=== PATIENT | female | born 1965 | race Caucasian/White ===

== ENCOUNTER 2018-01-16 07:20 | Inpatient (IN) ==
--- NOTE | 2018-01-16 07:31 | History & Physical Report ---
Date of Encounter: 01/16/18 Time of Encounter: 07:31 24 Hour HP Update - Instructions Instructions: If the History and Physical is less than 30 days old and was completed prior to A.M. admission and or procedure and has NOT been updated on calendar day of procedure please complete this update prior to performing procedure. - Update Patient reports changes in Medical Condition: No Changes in examination, assessment, or condition: No Changes in Medication: No Preop tests/diagnostics Reviewed: Yes Surgery Remains Indicated: Yes Consent for Planned Operative Procedure(s) Verified: Yes - Pre-Operative Checklist Preoperative Checklist Indicated: No Prophylactic Antibiotic Ordered: Yes Is VTE Prophylaxis Indicated?: Yes
[2018-01-16] MEDS ORDERED: CeFAZolin Syr 2,000MG/20 ML 2,000 MG/20 ML SYRINGE IVPB ONE (07:33)
[2018-01-16] MEDS ORDERED: Albuterol 2.5 MG/3 ML NEBULIZER IH ONE (07:33)
--- NOTE | 2018-01-16 07:41 | Anesthesia Evaluation PreOp ---
Date of Encounter: 01/16/18 Time of Encounter: 07:39 - Past History Planned Operation: Right Total Shoulder Cardiac History: HTN, Hyperlipidemia, Other (Hx) Pulmonary History: Denies Any Significant HX [employer] History: Seizures, CVA (approx 15 years ago), TIA ( 19 Years old), Other (Depression) Anesthesia History: No Prior Anesthetic Complications, Past Anesthesia (Appy, T&A, Left RCR, D&C, Breast Bx, Jt. TKR) : No Alcohol Use: none Drug use: none (denies but on subutex) Medications and Allergies Albuterol Sulfate [Albuterol Inhaler] 2 puff IH Q6H PRN 01/15/18 [History] Atorvastatin [Lipitor] 40 mg PO HS 01/15/18 [History] Buprenorphine HCl 01/15/18 [History] Clopidogrel [Plavix] 75 mg PO DAILY 01/15/18 [History] Gabapentin [Neurontin] 600 mg PO 01/15/18 [History] Ibuprofen 800 mg PO TID PRN 01/15/18 [History] Lisinopril [Zestril] 20 mg PO DAILY 01/15/18 [History] Polyethylene Glycol 3350 17 gm PO DAILY PRN 01/15/18 [History] Quetiapine Fumarate [Seroquel] 400 mg PO HS 01/15/18 [History] Sertraline [Zoloft] 200 mg PO DAILY 01/15/18 [History] diazePAM [Valium] 5 mg PO BID 01/15/18 [History] Allergy/AdvReac Type Severity Reaction Status Date / Time No Known Allergies Allergy Verified 12/02/14 18:18 - Meds/Allergy Pre-op Review Medications Reviewed: Yes Allergies Reviewed: Yes Beta Blockers on Current Med List: No Anesthesia Results - Labs Laboratory Tests 01/14/18 01/14/18 01/14/18 16:20 16:20 16:20 WBC 6.4 Hgb 12.9 Hct 38.0 Plt Count 170 INR 0.9 Sodium 137 Potassium 4.1 Chloride 100 Carbon Dioxide 33 H Creatinine 0.93 Anesthesia Exam O2 Sat Height 1.68 m Height 1.68 m Weight 86.183 kg Weight 86.183 kg O2 Sat by Pulse Oximetry 95 O2 Sat by Pulse Oximetry 95 Vital Signs Temp Pulse Resp BP Pulse Ox 98.2 F 86 18 119/77 95 01/16/18 07:34 01/16/18 07:34 01/16/18 07:34 01/16/18 07:34 01/16/18 07:34 NPO (# of Hours): > 8 Hrs Pain Scale: 0 Pain Scale Used: Numeric (1 - 10) - HEENT Pupil (Motor): Pupils equal, EOMI Mallampati: I Teeth: Normal Oral Opening: Greater than 3 - H[employer] LOC: Oriented [employer] Motor: Normal RUE, Normal LUE, Normal RLE, Normal LLE, Normal Face [employer] Sensory: Normal: RUE, LUE, RLE, LLE, Face - Cardiac Rhythm: Regular Murmur: None JVD: No Carotid Bruit: No - Pulmonary Breath Sounds: bilateral Clear Respiratory Effort: Symmetrical Anesthesia Assess/Plan ASA Score: 3 Level of consciousness: Cooperative Anesthetic Plan: General, Regional Nerve Block Regional Nerve Block Plan: Supraclavicular Autologous Blood: Yes Monitoring Plan: Standard Monitors Recovery Plan: PACU
[2018-01-16] MEDS ORDERED: Bupivacaine/Clonidine Syringe 1 EACH SYRINGE ONE (07:43)
[2018-01-16] MEDS ORDERED: ROPIVACAINE HCL/PF 0.5% 30 ML VIAL ONE (07:43)
[2018-01-16] MEDS ORDERED: Lidocaine -MPF 2% 5 ML VIAL ONE (07:44)
[2018-01-16] MEDS ORDERED: Ringers Solution, Lactated 1,000 ML IVC SCH ×2 (07:45→10:25)
[2018-01-16] MEDS ORDERED: *HR* Succinylcholine 200 MG/10 ML VIAL IVP ONE (07:47)
[2018-01-16] MEDS ORDERED: Ondansetron 4 MG/2 ML VIAL ONE (07:47)
[2018-01-16] MEDS ORDERED: Lidocaine -MPF 2% 2 ML VIAL ONE (07:47)
[2018-01-16] MEDS ORDERED: Ethanol\\Acetic Acid\\Na Ace\\Ben 1,000 ML IRRIG.SOLN IR ONE (07:47)
[2018-01-16] MEDS ORDERED: *HR* FentaNYL (PF) 100 MCG/2 ML VIAL ONE (07:47)
[2018-01-16] MEDS ORDERED: *HR* Propofol 200 MG/20 ML VIAL IVP ONE (07:47)
[2018-01-16] MEDS ORDERED: *HR* Midazolam HCl 2 MG/2 ML VIAL ONE (07:47)
[2018-01-16] MEDS ORDERED: Dexamethasone 4 MG/ML VIAL ONE (07:49)
[2018-01-16] MEDS ORDERED: *HR* OxyCODONE Immed Rel 5 MG TABLET PO PRN ×2 (08:09→10:25)
[2018-01-16] MEDS ORDERED: *HR* HYDROmorphone (PF) 1 MG/ML SYRINGE IVP PRN (08:09)
[2018-01-16] MEDS ORDERED: Ondansetron 4 MG/2 ML VIAL IVP ONE (08:09)
--- NOTE | 2018-01-16 08:09 | Anesthesia Procedures ---
Date of Encounter: 01/16/18 Time of Encounter: 08:00 Procedures: Anesthesia - Nerve Block Procedure Date: 01/16/18 Time: 08:07 Allergies/Adv Reactions: Allergy/AdvReac Type Severity Reaction Status Date / Time No Known Allergies Allergy Verified 12/02/14 18:18 Surgical Procedure: right total shouler arthroplasty Checklist: Correct Patient Identifier Correct side: Right Blood Thinner: Yes (plavix, all vascular structures visulaized on the ultrasound and avoided ) Monitor Applied: EKG, BP, Pulse Oximetry Supplemental Oxygen via Nasal Cannula (L/min): 2 Sedation: Versed (mg): 2 Sedation: Fentanyl (mcg): 100 Indication: Post Op Analgesia Pre-op Neuro Deficits: No Block Type: Supraclavicular, Other (ICB, SCP) Catheter placed: No Sterile Technique: Yes Ultrasound used: Yes Anatomy identified: Yes Visual spread of Local: Yes Neuro Stimulation: No Blood on Needle Aspiration: No Smooth Injection of Local: Yes Pain with Injection of Local: Yes Prep: Chlorhexadine Needle: 22 x 50 mm Stimuplex Local: 0.25% Bupivicaine w/Clonidine 20 mcg/cc, Ropivacaine Volume (cc): 50 Number of Attempts: 1 Complications: None/effective block Vitals: see nurses notes
[2018-01-16] MEDS ORDERED: *HR* PHENYLEPHRINE 1,000 MCG/10 ML SYRINGE IVP ONE (08:35)
[2018-01-16] MEDS ORDERED: EPHEDrine 50 MG/ML VIAL ONE (08:38)
[2018-01-16] MEDS ORDERED: Lidocaine -MPF 4% 5 ML AMPUL ONE (09:09)
--- NOTE | 2018-01-16 09:14 | Orthopedic Operative Note ---
Date of procedure: 01/16/18 Pre-op diagnosis: Right shoulder cuff tear arthropathy Post-op diagnosis: same Procedure: Procedure: Total Shoulder Replacment Reverse, right Estimated blood loss: 50 cc apex Hardware: Metal and polyethylene replacement: Arthrex 24, +2 , 25 screw glenoid baseplate, 2 4.5 screws. 2 5.5 screw, 39+4 glenosphere, 8 apex humeral stem, poly insert 3 Exam Under anesthesia: Full motion no instability Procedural Notes: Grade 4 arthritic changes humeral head glenoid socket re-tear rotator cuff Operative procedure: The patient was brought to the operating room and placed on the operating room table. After general anesthesia was administered the operative shoulder was examined. Findings were noted. The patient was placed in the modified beachchair position. All pressure points were padded appropriately. And the head was stabilized in the neutral position. The operative extremity was prepped and draped in the sterile surgical fashion. The patient received IV antibiotics prior to skin incision. A standard deltopectoral approach was made to the operative shoulder. Incision was made to the skin and subcutaneous tissue,hemo stasis was obtained with Bovie cautery. Using careful blunt dissection the cephalic vein was identified and mo bilized medially. The deltopectoral interval was developed and the clavipectoral fascia was incised. The subscap was released off the lesser tuberosity and tagged with #2 FiberWire suture subscap irreparable. The humerus was dislocated patient noted to have re-tear supraspinatus tendon, and the humeral cut was made along the anatomic neck. Patient noted to have grade 4 arthritic changes humeral head glenoid socket. Anterior and posterior Bankart retractors were placed to expose the glenoid. The glenoid guide was seated and the centering hole was made. It was reamed with the appropriate reamer. The 24+2, 25 mm screw, baseplate was seated and secured with (2) 4.5 screws and 2 5.5 screw. The baseplate was irrigated and dried and the 39+4 Glenosphere was seated and secured with the Okeefe taper. The O[place]fe taper was tested and found to be secure the humerus was redislocated and prepared with the diaphyseal reamers, followed by a broaching process up to the appropriate size 8 apex in the patient's anatomic version. The metaphyseal reamer was then utilized. Trial reduction found the shoulder to be relocatable. Trial components were removed and 8 apex stem was impacted in place in the patient's anatomic version. Trial reduction found the shoulder to be relocatable and stable with the appropriate 3 Yamileth Trial component was removed and the real implant was seated and secured the shoulder was reduced. The shoulder had excellent motion and excellent stability and no evidence of dislocation. The deep tissue was irrigated with pulse irrigation. The PA close the shoulder. The deltopectoral interval was closed with a running #1 PDS suture, subcutaneous tissue was irrigated and closed with 0 PDS suture, the skin was closed with Dermabond. The patient was placed in a sterile dressing, abduction brace and extubated. The patient was then transferred to the recovery room in stable condition. Anesthesia: GETA Surgeon: Timur Alex Was there an social and human services assistant present: No Estimated blood loss (cc): 50 Condition: stable Disposition: PACU
--- NOTE | 2018-01-16 09:48 | Discharge Summary ---
Orders not resulted at time of discharge: Pending orders 01/16/18 07:32 XR shoulder complete RT [XR] Routine 01/16/18 07:36 US anesthesia pain block [US] Routine 01/16/18 09:20 Surgical Pathology [PTH] Routine 01/16/18 09:35 Hemoglobin and Hematocrit [HEME] Routine 01/16/18 09:41 XR shoulder complete RT [XR] Routine Date of Encounter: 01/19/18 Time of Encounter: 08:57 - Discharge Diagnosis (1) Status post reverse total arthroplasty of right shoulder Priority: Primary Status: Acute Comments: Opsite dressing, leave intact until first post-operative visit. Zipline in place, plan to remove at post-operative day #14-16. If dressing becomes >50% saturated, contact office, remove dressing and place appropriate dressing in its place. Do not allow for dressing to get wet. Shoulder Precautions x 6 weeks. Apply cold therapy wrap 3-6x/day for 20 minutes at a time. Encourage ambulation throughout the day. Use Incentive spirometer 10x/hour. Elevate affected extremity above heart as tolerated. NWB to affected upper extremity x 6 weeks. Will remove brace at first post-operative appointment. OK to remove during PT/OT and Home exercises. (2) Rotator cuff arthropathy of right shoulder Priority: Primary Status: Acute (3) Seizure disorder Priority: Primary Status: Acute (4) Tobacco use Priority: Secondary Status: Chronic (5) Hyperlipidemia Priority: Secondary Status: Chronic Qualifiers: Hyperlipidemia type: mixed hyperlipidemia Qualified Code(s): E78.2 - Mixed hyperlipidemia - Hospital Course Hospital course: Ms. Gaston is a 53 year old female, status post Total Shoulder replacement, reverse ball and socket 01/16/18 Patient had uneventful postoperative course. Stable for discharge. A&O x 3 Afebrile, vital signs stable. Vital Signs Temp Pulse Resp BP Pulse Ox 01/18/18 15:42 98.7 F 76 17 134/82 95 01/18/18 11:50 98.5 F 74 20 146/75 96 Intake and Output 01/18/18 01/19/18 01/19/18 23:59 07:59 15:59 Intake Total 50 / 50 Balance 50 / 50 Intake: Oral 50 / 50 Other: Meal Dinner Percent of Meal Consumed 30% Labs reviewed. H/H - stable, asymptomatic Laboratory Results - last 72 hr 01/16/18 01/17/18 01/17/18 09:49 05:37 05:37 Hgb 11.7 10.5 L Hct 35.9 31.5 L Sodium 137 Potassium 4.3 Chloride 104 Carbon Dioxide 27 BUN 19 Creatinine 0.85 Est GFR ( Amer) > 60 Est GFR (Non-Af Amer) > 60 BUN/Creatinine Ratio 22 Glucose 130 H Calculated Osmolality 288 Calcium 9.4 01/18/18 01/18/18 05:00 05:00 Hgb 9.9 L Hct 29.9 L Sodium 139 Potassium 4.0 Chloride 106 Carbon Dioxide 29 BUN 20 Creatinine 0.97 Est GFR ( Amer) > 60 Est GFR (Non-Af Amer) > 60 BUN/Creatinine Ratio 21 Glucose 135 H Calculated Osmolality 293 Calcium 9.2 Pain control: adequate Participating in PT. All questions and concerns addressed. Educated on use of incentive spirometer. Encouraged ambulation and proper hydration. Patient educated on post-operative restrictions and post-operative care. Assessment and plan: Continue with postoperative care Discharge plan: Home, discharge today.to [facility] - on Subutex. - Time Spent with Patient Total time spent providing and/or coordinating discharge services: - Discharge Medications Home Medications: Albuterol Sulfate [Albuterol Inhaler] 2 puff IH Q6H PRN 01/15/18 [History] Atorvastatin [Lipitor] 40 mg PO HS 01/15/18 [History] Buprenorphine HCl 8 mg SL DAILY 01/15/18 [History] Clopidogrel [Plavix] 75 mg PO DAILY 01/15/18 [History] Gabapentin [Neurontin] 600 mg PO DAILY 01/15/18 [History] Ibuprofen 800 mg PO TID PRN 01/15/18 [History] Lisinopril [Zestril] 10 mg PO DAILY 01/15/18 [History] Polyethylene Glycol 3350 17 gm PO DAILY PRN 01/15/18 [History] Sertraline [Zoloft] 200 mg PO DAILY 01/15/18 [History] Quetiapine Fumarate [Seroquel] 400 mg PO HS 01/16/18 [History] diazePAM [Valium] 5 mg PO BID PRN 4 Days #8 tablet 01/16/18 [Rx] Allergies/Adverse Reactions: Allergy/AdvReac Type Severity Reaction Status Date / Time No Known Allergies Allergy Verified 12/02/14 18:18 Date of admission: 01/16/18 Primary care physician: PCP NONE Anticipated date of discharge: 01/18/18 - Patient Status Disposition: Transfer SNF Condition: Good Functional capacity at discharge: uses cane/walker Overall status at discharge: patient is progressing back to baseline - Discharge Instructions Follow Up With: NONE,PCP [Primary Care Provider] - Additional Instructions: Discharge Instructions: Total Shoulder Please call [facility] ([phone]), your Primary Care Physician, or report to the Emergency Room if you have any of the following symptoms: Nausea, vomiting, fever greater that 101.5, swelling, chest pain, shortness of breath, increased pain/redness/drainage/odor for your incision site, numbness/tingling, or any other concerning symptoms. ACTIVITY: Always keep your arm in the sling. Do not raise your arm away from your body. Do not use your arm to help with getting in or out of bed. No weight bearing permitted. Only perform those exercises given to you by your therapist. Incentive Spirometer 10 times an hour. MEDICATIONS: Upon discharge resume your home medications. Take all the medications as prescribed. Take a stool softener if taking narcotic pain medications. Stool softeners are only effective if you drink enough fluids. Drink 6-8 glass of water or fluids a day, unless this is not allowed for another health problem. Despite using stool softeners, if you haven't had a bowel movement in 3 days, please switch to a gentle laxative. Gentle laxatives are sold over the counter. You should have a bowel movement within 24 hours, if not call the office. You will be discharged from the hospital with a prescription for pain medic ation. You are encouraged to decrease the use of narcotic pain medication as tolerated. Should you require a refill, please call the office. [facility] prescribes narcotic pain medication for only 4-6 weeks after surgery. If you require pain medication beyond this time period, you may be referred to your Primary Care Physician or to the Pain Clinic for further evaluation. Plan ahead for refills on pain medication as many narcotics either need to be picked up at the office or mailed. It is best to call 48-72 hours in advance of needing a prescription refill so you don't run out of medication. To help control the post-operative pain, you may take NSAIDs (Aleve,Advil, Motrin, Ibuprofen, Naprosyn) or Tylenol as prescribed on the bottle in addition to the pain medication. WOUND CARE: Leave the dressing on for 7-10 days. You may change the dressing if it becomes saturated greater than 50%. Do not get the dressing wet at anytime. Wash your hands with antibacterial soap, rinse and dry prior to any wound care. If you have siva the visiting nurse or rehab facility can remove the stapes 10-14 days after surgery and place steri-strips across the wound. Leave the steri-strips in place until they fall off on their own. You may let water from the shower run on top of the steri-strips. If you do not have a visiting nurse or rehab facility, you will need to return to the office at 10-14 days for the siva to be removed. If you have itching or redness around the dressing call the office. FOLLOW-UP: Please follow up with your surgeon in the orthopedic clinic, as scheduled
[2018-01-16 09:59] LABS: Hematocrit 35.9 % (35.3-44.9); Hemoglobin 11.7 g/dL (11.5-15.4)
[2018-01-16] MEDS ORDERED: Ondansetron 4 MG/2 ML VIAL IVP PRN (10:25)
[2018-01-16] MEDS ORDERED: traMADol 50 MG TABLET PO PRN (10:25)
[2018-01-16] MEDS ORDERED: MOM Conc 10 ML UD.LIQ PO PRN (10:25)
[2018-01-16] MEDS ORDERED: Naloxone 0.4 MG/ML INJ IVP PRN (10:25)
[2018-01-16] MEDS ORDERED: *HR* Buprenorphine HCl 8 MG TAB.SUBL SL SCH (10:25)
[2018-01-16] MEDS ORDERED: *HR* OxyCODONE/APAP 5/325 TABLET PO PRN (10:25)
[2018-01-16] MEDS ORDERED: Temazepam 15 MG CAPSULE PO PRN (10:25)
[2018-01-16] MEDS ORDERED: Sennosides 8.6 MG TABLET PO PRN (10:25)
--- NOTE | 2018-01-16 10:39 | Anesthesia Evaluation Post Op ---
Date of Encounter: 01/16/18 Time of Encounter: 10:39 - Vital Signs Vital Signs: Vital Signs/O2 Sat, Most Current Temp Pulse Resp BP Pulse Ox 98.2 F 80 14 110/63 98 01/16/18 10:13 01/16/18 10:13 01/16/18 10:13 01/16/18 10:13 01/16/18 10:13 - Lungs Lungs: Clear Ascult./Percussion - Airway Airway: Non-obstructed - Cardiovascular Regular Rate - Mental Status Mental Status: Alert & Oriented, Answers Appropriately - Pain Pain Scale: 0 Pain Scale used: Numeric (1 - 10) - Hydration Hydration: Ice chips, Has not voided - Discharge PostOp Status: Transfer Patient to floor
[2018-01-16] MEDS: Gabapentin 300 MG CAPSULE PO SCH (11:30)
[2018-01-16] MEDS: Ibuprofen 800 MG TABLET PO SCH ×3 (11:30→22:08)
[2018-01-16] MEDS: diazePAM 5 MG TABLET PO PRN ×2 (11:31→22:14)
--- NOTE | 2018-01-16 12:54 | Physician Discharge Referral ---
ExtendedCare Referral Info Transfer To: [facility] Provider in Charge: Provider in Charge after Transfer: PCP Institutional Level of Care: Skilled - Diagnosis (1) Status post reverse total arthroplasty of right shoulder Priority: Primary Status: Acute (2) Rotator cuff arthropathy of right shoulder Priority: Primary Status: Acute (3) Seizure disorder Status: Acute (4) Tobacco use Status: Acute (5) Hyperlipidemia Status: Acute - Transfer Medications Home Medications: Albuterol Sulfate [Albuterol Inhaler] 2 puff IH Q6H PRN 01/15/18 [History] Atorvastatin [Lipitor] 40 mg PO HS 01/15/18 [History] Buprenorphine HCl 8 mg SL DAILY 01/15/18 [History] Clopidogrel [Plavix] 75 mg PO DAILY 01/15/18 [History] Gabapentin [Neurontin] 600 mg PO DAILY 01/15/18 [History] Ibuprofen 800 mg PO TID PRN 01/15/18 [History] Lisinopril [Zestril] 10 mg PO DAILY 01/15/18 [History] Polyethylene Glycol 3350 17 gm PO DAILY PRN 01/15/18 [History] Quetiapine Fumarate [Seroquel] 300 mg PO HS 01/15/18 [History] Sertraline [Zoloft] 200 mg PO DAILY 01/15/18 [History] diazePAM [Valium] 5 mg PO BID PRN 4 Days #8 tablet 01/16/18 [Rx] Allergies/Adverse Reactions: Allergy/AdvReac Type Severity Reaction Status Date / Time No Known Allergies Allergy Verified 12/02/14 18:18 - Respiratory Orders None Smoking Cessation: Smoking cessation has been advised. For more information, call the [place] Tobacco Quit Line at 7-165-ZLVG-NOW. - Lab Orders Lab Orders: CBC, Other (include drug levels w/frequency) (Breathing treatment prn) - Mobility Orders Ambulate - Rehabiliation Orders Rehab Potential: Good Rehab Orders: ROM Exercises, Evaluation for Physical Therapy, Evaluation for Occupational Therapy - Treatments Skin tear care topically daily PRN per policy, May check for fecal impaction rectally daily PRN, Fleet enema rectally every other day PRN cleansing purposes List/Other: Opsite dressing, leave intact until first post-operative visit. Zipline in place, plan to remove at post-operative day #14-16. If dressing becomes >50% saturated, contact office, remove dressing and place appropriate dressing in its place. Do not allow for dressing to get wet. Shoulder Precautions x 6 weeks. Apply cold therapy wrap 3-6x/day for 20 minutes at a time. Encourage ambulation throughout the day. Use Incentive spirometer 10x/hour. Elevate affected extremity above heart as tolerated. NWB to affected upper extremity x 6 weeks. Will remove brace at first post-operative appointment. OK to remove during PT/OT and Home exercises. - Diet Orders Regular CERTIFICATION: I certify that the transfer of the above named patient to an Extended Care Facility is necessary for the continuing treatment of the diagnosis listed. The above information is true and accurate reflection of patient's current condition. Confidential - Redisclosure prohibited without a patient's written consent.
--- NOTE | 2018-01-16 12:55 | Physician Discharge Referral ---
Home Health/Hosp Referral Info Transfer to: Home Health Provider in Charge Post Discharge: PCP - Diagnosis (1) Status post reverse total arthroplasty of right shoulder Priority: Primary Status: Acute (2) Rotator cuff arthropathy of right shoulder Priority: Primary Status: Acute (3) Seizure disorder Status: Acute (4) Tobacco use Status: Acute (5) Hyperlipidemia Status: Acute - Respiratory Orders None Smoking Cessation: Smoking cessation has been advised. For more information, call the [place] Tobacco Quit Line at 9-237-MTHM-NOW. - Diet/Nutrition Diet/Nutrition Orders: Regular - Activity Activity Orders: Up ad kimberli, Ambulate, Chair - Services Needed Following services are medically necessary services: Nursing, Home Health Aide, Physical Therapy, Occupational Therapy Home Care Orders: Opsite dressing, leave intact until first post-operative visit. Zipline in place, plan to remove at post-operative day #14-16. If dressing becomes >50% saturated, contact office, remove dressing and place appropriate dressing in its place. Do not allow for dressing to get wet. Shoulder Precautions x 6 weeks. Apply cold therapy wrap 3-6x/day for 20 minutes at a time. Encourage ambulation throughout the day. Use Incentive spirometer 10x/hour. Elevate affected extremity above heart as tolerated. NWB to affected upper extremity x 6 weeks. Will remove brace at first post-operative appointment. OK to remove during PT/OT and Home exercises. - Transfer Medications Home Medications: Albuterol Sulfate [Albuterol Inhaler] 2 puff IH Q6H PRN 01/15/18 [History] Atorvastatin [Lipitor] 40 mg PO HS 01/15/18 [History] Buprenorphine HCl 8 mg SL DAILY 01/15/18 [History] Clopidogrel [Plavix] 75 mg PO DAILY 01/15/18 [History] Gabapentin [Neurontin] 600 mg PO DAILY 01/15/18 [History] Ibuprofen 800 mg PO TID PRN 01/15/18 [History] Lisinopril [Zestril] 10 mg PO DAILY 01/15/18 [History] Polyethylene Glycol 3350 17 gm PO DAILY PRN 01/15/18 [History] Quetiapine Fumarate [Seroquel] 300 mg PO HS 01/15/18 [History] Sertraline [Zoloft] 200 mg PO DAILY 01/15/18 [History] diazePAM [Valium] 5 mg PO BID PRN 4 Days #8 tablet 01/16/18 [Rx] Allergies/Adverse Reactions: Allergy/AdvReac Type Severity Reaction Status Date / Time No Known Allergies Allergy Verified 12/02/14 18:18 Certification: Further, I certify that my clinical findings support that this patient is homebound (i.e. absences from home require considerable and taxing effort and are for medical reasons or [employer] services or infrequently or short duration when for other reasons) because: Homebound Reason: Post-surgery restriction and or conditions limit ability to leave home Attestation: My signature below is to certify that this patient is under my care and that I, or nurse practitioner, or a physician's spa assistant manager working with me, has a [id number] encounter with this patient.
[2018-01-16] MEDS ORDERED: *HR* Enoxaparin 30 MG/0.3 ML SYRINGE SQ SCH (18:00)
[2018-01-16] MEDS: *HR* Enoxaparin 30 MG/0.3 ML SYRINGE SQ SCH (18:10)
[2018-01-17] MEDS: *HR* Enoxaparin 30 MG/0.3 ML SYRINGE SQ SCH ×2 (05:18→18:08)
[2018-01-17] MEDS: Ibuprofen 800 MG TABLET PO SCH ×3 (05:49→15:24)
[2018-01-17 06:10] LABS: Hematocrit 31.5 % (35.3-44.9); Hemoglobin 10.5 g/dL (11.5-15.4)
--- NOTE | 2018-01-17 06:19 | Orthopedics Progress Note ---
Date of Encounter: 01/17/18 Time of Encounter: 06:19 Subjective Interval history: Patient was seen this morning doing well without complaints. Afebrile vital signs stable. Operative extremity: Neurovascularly intact Dressing clean dry and intact Calves nontender Assessment and plan: Continue with postoperative care Objective Vital signs: Vital Signs Temp Pulse Resp BP Pulse Ox 01/17/18 04:08 98.3 F 81 17 131/81 95 01/17/18 00:00 98.8 F 80 17 122/60 98 01/16/18 19:14 98.6 F 84 16 123/64 99 01/16/18 13:30 85 17 104/66 97 01/16/18 13:00 87 16 136/85 93 01/16/18 12:30 92 17 97/54 94 01/16/18 12:00 86 17 92/64 94 01/16/18 11:40 17 86/49 94 01/16/18 11:39 84 17 86/49 01/16/18 11:28 16 93 01/16/18 11:16 84 17 99/63 92 01/16/18 11:10 84 17 99/63 01/16/18 10:40 97.6 F 84 15 102/55 90 01/16/18 10:13 98.2 F 80 14 110/63 98 01/16/18 10:03 98 F 78 14 91/75 100 01/16/18 09:53 86 16 95/80 97 01/16/18 09:43 85 12 101/74 99 01/16/18 09:33 98.5 F 81 10 89/68 84 01/16/18 08:09 80 18 114/79 93 01/16/18 07:59 98.2 F 85 18 102/65 92 01/16/18 07:34 98.2 F 86 18 119/77 95 Intake and Output 01/16/18 01/16/18 01/17/18 15:59 23:59 06:59 Intake Total 1240 / 1240 300 / 300 Output Total 50 / 50 700 / 700 1250 / 1250 Balance -50 / -50 540 / 540 -950 / -950 Intake: IV Fluids 100 / 100 Ancef 2,000 MG In 0.9 % Sodium 100 / 100 Chloride 100 ML @ 200 mls/hr IVPB Q8HR [facility] Rx#:[id number] Oral 1140 / 1140 300 / 300 Output: Urine 700 / 700 1250 / 1250 Estimated Blood Loss 50 / 50 Other: Meal Dinner Percent of Meal Consumed 100% # Voids 1 - Labs CBC & BMP: 01/17/18 05:37 Labs: Abnormal lab results Hgb 10.5 g/dL (11.5-15.4) L 01/17/18 05:37 Hct 31.5 % (35.3-44.9) L 01/17/18 05:37 Consult Discharge Plan - Plan Referrals: NONE,PCP [Primary Care Provider] -
[2018-01-17 06:34] LABS: BUN/Creatinine Ratio 22 (6-26); Blood Urea Nitrogen 19 mg/dL (6-20); Calcium 9.4 mg/dL (8.6-10.3); Carbon Dioxide 27 mEq/L (23-29); Chloride 104 mEq/L (98-107); Glucose 130 mg/dL (70-105); Osmolality,Calculated 288 (280-300); Potassium 4.3 mEq/L (3.5-5.1); Sodium 137 mEq/L (136-145); eGFR For Non-African Americans > 60 (> 60)
[2018-01-17] MEDS: Gabapentin 300 MG CAPSULE PO SCH (08:51)
[2018-01-17] MEDS: *HR* Buprenorphine HCl 8 MG TAB.SUBL SL SCH ×3 (08:51→20:00)
[2018-01-17] MEDS: Ketorolac 15 MG/ML VIAL IVP PRN (08:56)
[2018-01-17] MEDS: Acetaminophen IV 1,000 MG/100 ML INFUS..BTL IVPB PRN ×2 (13:22→22:09)
[2018-01-17] MEDS: diazePAM 5 MG TABLET PO PRN (20:02)
[2018-01-18] MEDS: Ibuprofen 800 MG TABLET PO SCH ×3 (00:40→17:41)
[2018-01-18 05:41] LABS: Hematocrit 29.9 % (35.3-44.9); Hemoglobin 9.9 g/dL (11.5-15.4)
[2018-01-18] MEDS: *HR* Enoxaparin 30 MG/0.3 ML SYRINGE SQ SCH (05:48)
[2018-01-18] MEDS: Ketorolac 15 MG/ML VIAL IVP PRN ×2 (05:48→12:49)
[2018-01-18 06:01] LABS: BUN/Creatinine Ratio 21 (6-26); Blood Urea Nitrogen 20 mg/dL (6-20); Calcium 9.2 mg/dL (8.6-10.3); Carbon Dioxide 29 mEq/L (23-29); Chloride 106 mEq/L (98-107); Glucose 135 mg/dL (70-105); Osmolality,Calculated 293 (280-300); Sodium 139 mEq/L (136-145); eGFR For Non-African Americans > 60 (> 60)
--- NOTE | 2018-01-18 07:39 | Orthopedics Progress Note ---
Date of Encounter: 01/18/18 Time of Encounter: 07:39 - Assessment and Plan (1) Acute blood loss anemia Current Visit: No Status: Acute Subjective Interval history: Patient was seen this morning doing well without complaints. Afebrile vital signs stable. Operative extremity: Neurovascularly intact Dressing clean dry and intact Calves nontender Assessment and plan: Continue with postoperative care Hemoglobin 9.9 Objective Vital signs: Vital Signs Temp Pulse Resp BP Pulse Ox 01/18/18 06:54 98.5 F 86 15 147/72 96 01/18/18 04:16 97.9 F 80 18 128/86 93 01/17/18 22:57 98.5 F 79 18 116/79 93 01/17/18 19:57 99.0 F 82 18 122/74 95 01/17/18 14:45 98.2 F 76 18 101/65 95 01/17/18 09:59 98.3 F 81 16 121/68 97 Intake and Output 01/17/18 01/17/18 01/18/18 15:59 23:59 07:59 Intake Total 350 / 350 100 / 100 0 / 0 Output Total 1500 / 1500 700 / 700 900 / 900 Balance -1150 / -1150 -600 / -600 -900 / -900 Intake: IV Fluids 100 / 100 100 / 100 Ofirmev 1,000 mg/100 ml 1,000 100 / 100 100 / 100 mg In 100 ml @ 400 mls/hr IVPB Q6HR PRN Rx#:[id number] Oral 250 / 250 0 / 0 0 / 0 Output: Urine 1500 / 1500 700 / 700 900 / 900 Other: Meal Lunch Percent of Meal Consumed 60% # Voids 1 1 Weight 97.9 kg Patient Weight 01/18/18 23:59 Weight 97.9 kg - Labs CBC & BMP: 01/18/18 05:00 01/18/18 05:00 Labs: Abnormal lab results Hgb 9.9 g/dL (11.5-15.4) L 01/18/18 05:00 Hct 29.9 % (35.3-44.9) L 01/18/18 05:00 Glucose 135 mg/dL (70-105) H 01/18/18 05:00 Consult Discharge Plan - Plan Referrals: NONE,PCP [Primary Care Provider] -
[2018-01-18] MEDS: *HR* Buprenorphine HCl 8 MG TAB.SUBL SL SCH ×2 (08:20→17:41)
[2018-01-18] MEDS: Gabapentin 300 MG CAPSULE PO SCH (08:20)
[2018-01-18] MEDS: diazePAM 5 MG TABLET PO PRN (08:25)
[2018-01-18] MEDS: Acetaminophen IV 1,000 MG/100 ML INFUS..BTL IVPB PRN (08:33)
[2018-01-18 15:44] VITALS: BP 134/82
--- NOTE | 2018-01-19 09:03 | Physician Discharge Referral ---
Home Health/Hosp Referral Info Transfer to: Home Health Provider in Charge Post Discharge: PCP - Diagnosis (1) Status post reverse total arthroplasty of right shoulder Priority: Primary Status: Acute (2) Rotator cuff arthropathy of right shoulder Priority: Primary Status: Acute (3) Seizure disorder Priority: Secondary Status: Acute (4) Tobacco use Priority: Secondary Status: Chronic (5) Hyperlipidemia Priority: Secondary Status: Chronic (6) Chronic pain Priority: Secondary Status: Chronic (7) Acute blood loss anemia Priority: Secondary Status: Chronic - Respiratory Orders None Smoking Cessation: Smoking cessation has been advised. For more information, call the [place] Tobacco Quit Line at 8-339-OEYK-NOW. - Diet/Nutrition Diet/Nutrition Orders: Regular - Activity Activity Orders: Up ad kimberli, Ambulate - Services Needed Following services are medically necessary services: Nursing, Home Health Aide, Physical Therapy, Occupational Therapy Home Care Orders: Opsite dressing, leave intact until first post-operative visit. Zipline in place, plan to remove at post-operative day #14-16. If dressing becomes >50% saturated, contact office, remove dressing and place appropriate dressing in its place. Do not allow for dressing to get wet. Shoulder Precautions x 6 weeks. Apply cold therapy wrap 3-6x/day for 20 minutes at a time. Encourage ambulation throughout the day. Use Incentive spirometer 10x/hour. Elevate affected extremity above heart as tolerated. NWB to affected upper extremity x 6 weeks. Will remove brace at first post-operative appointment. OK to remove during PT/OT and Home exercises. Remove ABD pillow at Postoperative day #1 - Transfer Medications Home Medications: Albuterol Sulfate [Albuterol Inhaler] 2 puff IH Q6H PRN 01/15/18 [History] Atorvastatin [Lipitor] 40 mg PO HS 01/15/18 [History] Buprenorphine HCl 8 mg SL DAILY 01/15/18 [History] Clopidogrel [Plavix] 75 mg PO DAILY 01/15/18 [History] Gabapentin [Neurontin] 600 mg PO DAILY 01/15/18 [History] Ibuprofen 800 mg PO TID PRN 01/15/18 [History] Lisinopril [Zestril] 10 mg PO DAILY 01/15/18 [History] Polyethylene Glycol 3350 17 gm PO DAILY PRN 01/15/18 [History] Sertraline [Zoloft] 200 mg PO DAILY 01/15/18 [History] Quetiapine Fumarate [Seroquel] 400 mg PO HS 01/16/18 [History] diazePAM [Valium] 5 mg PO BID PRN 4 Days #8 tablet 01/16/18 [Rx] Allergies/Adverse Reactions: Allergy/AdvReac Type Severity Reaction Status Date / Time No Known Allergies Allergy Verified 12/02/14 18:18 Certification: Further, I certify that my clinical findings support that this patient is homebound (i.e. absences from home require considerable and taxing effort and are for medical reasons or rastafarian services or infrequently or short duration when for other reasons) because: Homebound Reason: Post-surgery restriction and or conditions limit ability to leave home Attestation: My signature below is to certify that this patient is under my care and that I, or nurse practitioner, or a physician's membership assistant working with me, has a [id number] encounter with this patient.
== END 2018-01-18 18:05 | DRG 322 ==
LOC: SAMDAY 07:20 → 3NENU 10:20
PROVIDERS: ADMIT Orthopaedic Surgery; ATTEND Orthopaedic Surgery

== ENCOUNTER 2021-07-31 16:50 | Inpatient (IN) ==
[2021-07-31] MEDS ORDERED: Naloxone 0.4 MG/ML INJ IVP PRN (18:48)
[2021-07-31] MEDS ORDERED: Perflutren Lipid Microsphere 1.3 ML in 0.9 % Sodium Chloride 8.7 ML IVP PRN (18:53)
[2021-07-31] MEDS ORDERED: Albuterol 2.5 MG/3 ML NEBULIZER IH PRN (18:55)
[2021-07-31] MEDS ORDERED: Ondansetron 4 MG/2 ML VIAL IVP PRN (18:55)
[2021-07-31 19:25] LABS: Bilirubin,Urine Negative (Negative); Blood,Urine Moderate (Negative); Clarity,Urine Clear (Clear); Color,Urine Light-Yellow (Yellow); Glucose,Urine (UA) Normal (Normal); Hyaline Casts,Urine Few per lpf (None Seen); Ketones,Urine Negative (Negative); Leukocyte Esterase,Urine Negative (Negative); Mucus,Urine Few per lpf (None-Few); Nitrite,Urine Negative (Negative); Protein,Urine 50 mg/dL (Neg-Trace); RBC,Urine 0-3 per hpf (0-3); Specific Gravity,Urine 1.014 (1.010-1.025); Transitional Epi Cells,Urine Few per hpf (None-Few); Urobilinogen,Urine Normal (Normal); WBC,Urine 0-3 per hpf (0-3)
[2021-07-31] MEDS: Norepinephrine 4 MG/254 ML IV.SOLN IVC SCH (19:30)
[2021-07-31 19:38] LABS: Amphetamine Screen,Urine Negative ng/mL (Cutoff=1000); Barbiturate Screen,Urine Negative ng/mL (Cutoff=200); Benzodiazepines Screen,Urine Positive ng/mL (Cutoff=200); Cannabinoid Screen,Urine Negative ng/mL (Cutoff = 50); Cocaine Screen,Urine Negative ng/mL (Cutoff= 300); Opiate Screen,Urine Negative ng/mL (Cutoff=300); Phencyclidine Screen,Urine Negative ng/mL (Cutoff=25)
[2021-07-31 21:30] LABS: Hemoglobin 7.3 g/dL (11.5-15.4); Mean Corpuscular HGB Conc 33.2 g/dL (31.6-35.5); Mean Corpuscular Hemoglobin 33.2 pg (28.0-33.3); Nucleated Red Blood Cells 0.2 /100 WBC (0)
[2021-07-31 21:32] LABS: Basophils # 0.1 K/mcL (0.0-0.2); Basophils % 0.4 %; Immature Granulocytes % 15.2 % (0-4); Immature Platelets 27.9 % (1.1-6.1); Mean Platelet Volume 12.7 fL (9.4-12.4); Monocytes # 4.9 K/mcL (0.0-1.3); Neutrophils # 9.6 K/mcL (1.6-8.9); Platelet Count 102 K/mcL (140-400); Red Cell Distribution Width 18.9 % (11.5-14.5); White Blood Count 20.7 K/mcL (4.3-11.1)
[2021-07-31 21:38] LABS: INR 2.1; Prothrombin Time 23.3 Seconds (9.4-12.1)
[2021-07-31 21:45] LABS: Albumin/Globulin Ratio 0.9 (1.1-2.2); Bilirubin,Direct 0.1 mg/dL (0.0-0.2); Bilirubin,Indirect 0.3 mg/dL (0.0-1.0); Bilirubin,Total 0.4 mg/dL (0.3-1.0); Globulin 3.2 g/dL (2.4-3.5); Phosphorous 3.2 mg/dL (2.7-4.5); Total Protein 6.2 g/dL (6.4-8.9)
[2021-07-31 21:56] LABS: Platelet Estimate Decreased (Normal)
[2021-07-31] MEDS: Ipratropium/Albuterol Neb 3 ML IH SCH (22:04)
[2021-07-31] MEDS: Piperacillin/Tazobactam 3.375 GM in 0.9 % Sodium Chloride Mini Bag 100 ML IVPB SCH (22:11)
[2021-07-31] MEDS: Pantoprazole 40 MG VIAL IVP SCH (22:25)
[2021-07-31 22:38] LABS: Hepatitis B Surface Antigen Nonreactive (Nonreactive)
[2021-07-31 23:06] LABS: Hepatitis B Core IgM Nonreactive (Nonreactive)
[2021-07-31 23:08] LABS: Hepatitis A Antibody IgM Nonreactive (Nonreactive)
[2021-08-01] MEDS: 0.9 % Sodium Chloride 1,000 ML IVC SCH ×3 (02:21→21:32)
[2021-08-01 03:42] LABS: Hepatitis C Virus Antibody Nonreactive (Nonreactive)
[2021-08-01] MEDS: Ipratropium/Albuterol Neb 3 ML IH SCH ×4 (03:45→20:03)
[2021-08-01] MEDS: Piperacillin/Tazobactam 3.375 GM in 0.9 % Sodium Chloride Mini Bag 100 ML IVPB SCH ×3 (03:47→18:38)
[2021-08-01 03:49] LABS: Hematocrit 20.9 % (35.3-44.9); Hemoglobin 6.9 g/dL (11.5-15.4)
[2021-08-01 03:51] LABS: Immature Platelets 27.6 % (1.1-6.1); Mean Corpuscular Hemoglobin 32.9 pg (28.0-33.3); Mean Corpuscular Volume 99.5 fL (83.0-100.0); Mean Platelet Volume 12.6 fL (9.4-12.4); Nucleated Red Blood Cells 0.1 /100 WBC (0); Red Cell Distribution Width 19.3 % (11.5-14.5); White Blood Count 13.9 K/mcL (4.3-11.1)
[2021-08-01 03:54] LABS: Platelet Count 85 K/mcL (140-400)
[2021-08-01 03:59] LABS: INR 2.5; Prothrombin Time 27.9 Seconds (9.4-12.1)
[2021-08-01 04:32] LABS: Alanine Aminotransferase 16 Units/L (7-52); Albumin 2.9 g/dL (3.5-5.7); Albumin/Globulin Ratio 0.9 (1.1-2.2); Alkaline Phosphatase 100 Units/L (34-104); Aspartate Amino Transferase 34 Units/L (13-39); BUN/Creatinine Ratio 23 (6-26); Bilirubin,Direct 0.1 mg/dL (0.0-0.2); Bilirubin,Indirect 0.3 mg/dL (0.0-1.0); Bilirubin,Total 0.4 mg/dL (0.3-1.0); Blood Urea Nitrogen 23 mg/dL (6-20); Calcium 8.2 mg/dL (8.6-10.3); Carbon Dioxide 24 mEq/L (23-29); Chloride 102 mEq/L (98-107); Globulin 3.2 g/dL (2.4-3.5); Glucose 114 mg/dL (70-105); Magnesium 2.1 mg/dL (1.6-2.6); Osmolality,Calculated 289 (280-300); Phosphorous 2.8 mg/dL (2.7-4.5); Potassium 3.1 mEq/L (3.5-5.1); Sodium 137 mEq/L (136-145); Total Protein 6.1 g/dL (6.4-8.9); Troponin I 0.27 ng/mL (< 0.04); eGFR For African Americans > 60 (> 60); eGFR For Non-African Americans 56 (> 60)
[2021-08-01] MEDS: *HR* Buprenorphine HCl 8 MG TAB.SUBL SL SCH ×4 (04:38→21:18)
[2021-08-01 04:47] LABS: Eosinophils # 0.3 K/mcL (0.0-0.6); Lymphocytes # 3.1 K/mcL (0.6-4.6); Neutrophils # 8.3 K/mcL (1.6-8.9); Platelet Estimate Decreased (Normal)
[2021-08-01] MEDS ORDERED: 0.9 % Sodium Chloride 250 ML IVC SCH ×2 (05:15)
[2021-08-01 06:37] LABS: Adenovirus Not Detected (Not Detect); Bordetella Pertussis Not Detected (Not Detect); Coronavirus 229E Not Detected (Not Detect); Coronavirus HKU1 Not Detected (Not Detect); Coronavirus NL63 Not Detected (Not Detect); Coronavirus OC43 Not Detected (Not Detect); Human Metapneumovirus Not Detected (Not Detect); Human Rhinovirus/Enterovirus DETECTED (Not Detect); Influenza A Subtype 2009 H1 Not Detected (Not Detect); Influenza B Not Detected (Not Detect); Parainfluenza Virus 1 Not Detected (Not Detect); Parainfluenza Virus 2 Not Detected (Not Detect); Parainfluenza Virus 4 Not Detected (Not Detect); Respiratory Syncytial Virus Not Detected (Not Detect); SARS-CoV-2 Not Detected (Not Detect)
[2021-08-01 06:38] LABS: Chlamydophila pneumoniae Not Detected (Not Detect); Mycoplasma pneumoniae Not Detected (Not Detect); Parainfluenza Virus 3 Not Detected (Not Detect)
[2021-08-01] MEDS: Norepinephrine 4 MG/254 ML IV.SOLN IVC SCH (06:42)
[2021-08-01] MEDS: Pantoprazole 40 MG VIAL IVP SCH ×2 (06:42→16:13)
[2021-08-01] MEDS: Azithromycin 500 MG in 0.9 % Sodium Chloride 250 ML IVPB SCH (06:50)
[2021-08-01] MEDS ORDERED: Acetaminophen IV 1,000 MG/100 ML BAG IVPB ONE (07:31)
[2021-08-01 07:47] LABS: ABG Base Excess -1 mEq/L (-2 to 3); ABG HCO3 24 mEq/L (21-27); ABG Oxygen Saturation 89 % (95-98); ABG PCO2 35 mmHg (35-45); ABG PH 7.43 pH Units (7.32-7.45); ABG PO2 54 mmHg (85-104); ABG TCO2 25 mEq/L (20-26)
[2021-08-01] MEDS ORDERED: MethylPREDNISolone 40 MG/ML VIAL ONE (07:49)
[2021-08-01] MEDS: MethylPREDNISolone 40 MG/ML VIAL IVP SCH ×3 (07:50→23:29)
[2021-08-01 09:29] LABS: Lactate Dehydrogenase 422 Units/L (140-271)
[2021-08-01] MEDS ORDERED: 0.9 % Sodium Chloride 250 ML ONE (10:21)
[2021-08-01] MEDS ORDERED: Gabapentin 400 MG CAPSULE PO SCH (10:45)
[2021-08-01] MEDS: Gabapentin 400 MG CAPSULE PO SCH ×2 (11:31→21:17)
[2021-08-01 15:43] LABS: Potassium 3.3 mEq/L (3.5-5.1)
[2021-08-01 15:44] LABS: Red Blood Count 2.42 M/mcL (3.82-4.97)
[2021-08-01 15:54] LABS: Hematocrit 23.8 % (35.3-44.9); Hemoglobin 7.9 g/dL (11.5-15.4); Mean Corpuscular HGB Conc 33.2 g/dL (31.6-35.5); Mean Corpuscular Hemoglobin 32.6 pg (28.0-33.3); Mean Corpuscular Volume 98.3 fL (83.0-100.0); Troponin I 0.18 ng/mL (< 0.04)
[2021-08-01 15:56] LABS: Immature Platelets 30.7 % (1.1-6.1); Mean Platelet Volume 13.7 fL (9.4-12.4); Nucleated Red Blood Cells 0.1 /100 WBC (0); Platelet Count 65 K/mcL (140-400)
[2021-08-01 16:31] LABS: Eosinophils # 0.2 K/mcL (0.0-0.6); Lymphocytes # 2.7 K/mcL (0.6-4.6); Monocytes # 0.5 K/mcL (0.0-1.3); Neutrophils # 9.5 K/mcL (1.6-8.9)
[2021-08-01 16:36] LABS: Anisocytosis 3+ (Not Present); Platelet Estimate Decreased (Normal); Reactive Lymphocytes Present (Not Present); Toxic Granulation Present (Not Present)
[2021-08-01] MEDS: QUEtiapine Fumarate 300 MG TABLET PO SCH (21:18)
[2021-08-01] MEDS: diazePAM 5 MG TABLET PO SCH (21:19)
[2021-08-01] MEDS: Chlorhexidine Rinse 15 ML MOUTHWASH MM SCH (21:19)
[2021-08-02] MEDS: Piperacillin/Tazobactam 3.375 GM in 0.9 % Sodium Chloride Mini Bag 100 ML IVPB SCH ×3 (02:09→18:07)
[2021-08-02] MEDS: Ipratropium/Albuterol Neb 3 ML IH SCH ×4 (04:04→20:28)
[2021-08-02] MEDS: Gabapentin 400 MG CAPSULE PO SCH ×3 (04:23→19:30)
[2021-08-02] MEDS: Pantoprazole 40 MG VIAL IVP SCH ×2 (04:24→18:07)
[2021-08-02] MEDS: Azithromycin 500 MG in 0.9 % Sodium Chloride 250 ML IVPB SCH (04:24)
[2021-08-02 04:28] LABS: Nucleated Red Blood Cells 0.1 /100 WBC (0); Red Cell Distribution Width 19.9 % (11.5-14.5)
[2021-08-02 04:30] LABS: Hematocrit 32.5 % (35.3-44.9); Hemoglobin 10.8 g/dL (11.5-15.4); Immature Platelets 31.2 % (1.1-6.1); Mean Corpuscular HGB Conc 33.2 g/dL (31.6-35.5); Mean Corpuscular Hemoglobin 32.4 pg (28.0-33.3); Mean Corpuscular Volume 97.6 fL (83.0-100.0); Mean Platelet Volume 12.1 fL (9.4-12.4); Red Blood Count 3.33 M/mcL (3.82-4.97); White Blood Count 24.7 K/mcL (4.3-11.1)
[2021-08-02 04:50] LABS: % Iron Saturation 41 % (15-50); Alanine Aminotransferase 13 Units/L (7-52); Albumin 2.5 g/dL (3.5-5.7); Albumin/Globulin Ratio 0.9 (1.1-2.2); Alkaline Phosphatase 87 Units/L (34-104); Aspartate Amino Transferase 23 Units/L (13-39); BUN/Creatinine Ratio 37 (6-26); Bilirubin,Direct 0.1 mg/dL (0.0-0.2); Bilirubin,Indirect 0.3 mg/dL (0.0-1.0); Bilirubin,Total 0.4 mg/dL (0.3-1.0); Blood Urea Nitrogen 26 mg/dL (6-20); Calcium 8.2 mg/dL (8.6-10.3); Carbon Dioxide 23 mEq/L (23-29); Chloride 107 mEq/L (98-107); Globulin 2.9 g/dL (2.4-3.5); Glucose 130 mg/dL (70-105); Iron 69 mcg/dL (50-170); Magnesium 2.2 mg/dL (1.6-2.6); Osmolality,Calculated 291 (280-300); Phosphorous 2.6 mg/dL (2.7-4.5); Sodium 137 mEq/L (136-145); Total Protein 5.4 g/dL (6.4-8.9); Transferrin 120 mg/dL (203-362); eGFR For African Americans > 60 (> 60); eGFR For Non-African Americans > 60 (> 60)
[2021-08-02 04:55] LABS: Troponin I 0.09 ng/mL (< 0.04)
[2021-08-02 05:12] LABS: Folate 9.5 ng/mL (3.0-16.0)
[2021-08-02 05:15] LABS: Vitamin B12 > 1500 pg/mL (250-1100)
[2021-08-02 05:36] LABS: Platelet Count 75 K/mcL (140-400)
[2021-08-02 05:39] LABS: Lymphocytes # 6.9 K/mcL (0.6-4.6); Neutrophils # 12.8 K/mcL (1.6-8.9); Platelet Estimate Decreased (Normal)
[2021-08-02] MEDS: Norepinephrine 4 MG/254 ML IV.SOLN IVC SCH ×3 (07:30→11:08)
[2021-08-02] MEDS: 0.9 % Sodium Chloride 1,000 ML IVC SCH (07:39)
[2021-08-02] MEDS: MethylPREDNISolone 40 MG/ML VIAL IVP SCH ×3 (07:40→23:03)
[2021-08-02] MEDS: QUEtiapine Fumarate 300 MG TABLET PO SCH ×2 (07:41→20:15)
[2021-08-02] MEDS: diazePAM 5 MG TABLET PO SCH ×2 (07:41→20:14)
[2021-08-02] MEDS: *HR* Buprenorphine HCl 8 MG TAB.SUBL SL SCH ×3 (07:41→20:17)
[2021-08-02] MEDS: Chlorhexidine Rinse 15 ML MOUTHWASH MM SCH ×2 (07:41→20:12)
[2021-08-02] MEDS ORDERED: Furosemide 20 MG/2 ML VIAL IVP ONE ×2 (09:16→21:00)
[2021-08-02 10:11] LABS: INR 4.4; Prothrombin Time 48.1 Seconds (9.4-12.1)
[2021-08-02] MEDS ORDERED: *HR* Phytonadione 5 MG TABLET PO ONE (11:07)
[2021-08-03] MEDS: Piperacillin/Tazobactam 3.375 GM in 0.9 % Sodium Chloride Mini Bag 100 ML IVPB SCH ×3 (03:02→18:53)
[2021-08-03 03:25] LABS: Red Blood Count 2.67 M/mcL (3.82-4.97)
[2021-08-03] MEDS: Gabapentin 400 MG CAPSULE PO SCH ×3 (03:26→19:23)
[2021-08-03 03:27] LABS: Hematocrit 26.5 % (35.3-44.9); Hemoglobin 8.7 g/dL (11.5-15.4); Immature Platelets 35.2 % (1.1-6.1); Mean Corpuscular HGB Conc 32.8 g/dL (31.6-35.5); Mean Corpuscular Hemoglobin 32.6 pg (28.0-33.3); Mean Corpuscular Volume 99.3 fL (83.0-100.0); Mean Platelet Volume 13.8 fL (9.4-12.4); Nucleated Red Blood Cells 0.2 /100 WBC (0); Red Cell Distribution Width 19.6 % (11.5-14.5); White Blood Count 21.7 K/mcL (4.3-11.1)
[2021-08-03 03:36] LABS: INR 1.3
[2021-08-03 03:40] LABS: Alanine Aminotransferase 18 Units/L (7-52); Albumin 2.5 g/dL (3.5-5.7); Albumin/Globulin Ratio 0.9 (1.1-2.2); Alkaline Phosphatase 70 Units/L (34-104); Aspartate Amino Transferase 23 Units/L (13-39); BUN/Creatinine Ratio 43 (6-26); Bilirubin,Direct 0.1 mg/dL (0.0-0.2); Bilirubin,Indirect 0.2 mg/dL (0.0-1.0); Bilirubin,Total 0.3 mg/dL (0.3-1.0); Blood Urea Nitrogen 34 mg/dL (6-20); Calcium 8.3 mg/dL (8.6-10.3); Carbon Dioxide 26 mEq/L (23-29); Chloride 104 mEq/L (98-107); Globulin 2.7 g/dL (2.4-3.5); Glucose 211 mg/dL (70-105); Osmolality,Calculated 294 (280-300); Phosphorous 2.5 mg/dL (2.7-4.5); Potassium 4.2 mEq/L (3.5-5.1); Sodium 135 mEq/L (136-145); Total Protein 5.2 g/dL (6.4-8.9); eGFR For African Americans > 60 (> 60); eGFR For Non-African Americans > 60 (> 60)
[2021-08-03] MEDS: Ipratropium/Albuterol Neb 3 ML IH SCH ×4 (03:42→20:05)
[2021-08-03 03:49] LABS: Platelet Count 87 K/mcL (140-400)
[2021-08-03 04:04] LABS: Anisocytosis 2+ (Not Present); Large Platelets Present (Not Present); Lymphocytes # 3.9 K/mcL (0.6-4.6); Monocytes # 0.7 K/mcL (0.0-1.3); Platelet Estimate Decreased (Normal)
[2021-08-03] MEDS: Pantoprazole 40 MG VIAL IVP SCH ×2 (05:18→17:21)
[2021-08-03] MEDS: Azithromycin 500 MG in 0.9 % Sodium Chloride 250 ML IVPB SCH (05:19)
[2021-08-03] MEDS: Chlorhexidine Rinse 15 ML MOUTHWASH MM SCH ×2 (08:47→20:26)
[2021-08-03] MEDS: *HR* Buprenorphine HCl 8 MG TAB.SUBL SL SCH ×3 (08:47→20:26)
[2021-08-03] MEDS: diazePAM 5 MG TABLET PO SCH ×2 (08:47→20:26)
[2021-08-03] MEDS: QUEtiapine Fumarate 300 MG TABLET PO SCH ×2 (08:47→20:26)
[2021-08-03] MEDS: MethylPREDNISolone 40 MG/ML VIAL IVP SCH (08:48)
[2021-08-03 11:48] LABS: Lactate Dehydrogenase 363 Units/L (140-271)
[2021-08-04] MEDS: Piperacillin/Tazobactam 3.375 GM in 0.9 % Sodium Chloride Mini Bag 100 ML IVPB SCH ×3 (01:58→19:30)
[2021-08-04 02:45] LABS: Mean Corpuscular Volume 100.4 fL (83.0-100.0); Nucleated Red Blood Cells 0.3 /100 WBC (0)
[2021-08-04 02:46] LABS: Hematocrit 24.7 % (35.3-44.9); Hemoglobin 8.1 g/dL (11.5-15.4); Immature Platelets 32.5 % (1.1-6.1); Mean Corpuscular HGB Conc 32.8 g/dL (31.6-35.5); Mean Corpuscular Hemoglobin 32.9 pg (28.0-33.3); Mean Platelet Volume 13.5 fL (9.4-12.4); Red Blood Count 2.46 M/mcL (3.82-4.97); White Blood Count 17.5 K/mcL (4.3-11.1)
[2021-08-04 02:55] LABS: Platelet Count 87 K/mcL (140-400)
[2021-08-04 03:04] LABS: Alanine Aminotransferase 23 Units/L (7-52); Alkaline Phosphatase 82 Units/L (34-104); Aspartate Amino Transferase 22 Units/L (13-39); BUN/Creatinine Ratio 33 (6-26); Bilirubin,Direct 0.1 mg/dL (0.0-0.2); Bilirubin,Indirect 0.5 mg/dL (0.0-1.0); Bilirubin,Total 0.6 mg/dL (0.3-1.0); Blood Urea Nitrogen 23 mg/dL (6-20); Calcium 8.5 mg/dL (8.6-10.3); Carbon Dioxide 28 mEq/L (23-29); Chloride 107 mEq/L (98-107); Glucose 153 mg/dL (70-105); Magnesium 1.8 mg/dL (1.6-2.6); Osmolality,Calculated 301 (280-300); Phosphorous 1.6 mg/dL (2.7-4.5); Potassium 3.6 mEq/L (3.5-5.1); Sodium 142 mEq/L (136-145); eGFR For African Americans > 60 (> 60); eGFR For Non-African Americans > 60 (> 60)
[2021-08-04] MEDS: Gabapentin 400 MG CAPSULE PO SCH ×4 (03:16→19:59)
[2021-08-04 03:43] LABS: Anisocytosis 1+ (Not Present); Hypochromasia Present (Not Present); Lymphocytes # 5.3 K/mcL (0.6-4.6); Monocytes # 0.4 K/mcL (0.0-1.3); Neutrophils # 10.5 K/mcL (1.6-8.9); Platelet Estimate Decreased (Normal); Stomatocytes 1+ (Not Present)
[2021-08-04] MEDS: Ipratropium/Albuterol Neb 3 ML IH SCH ×4 (03:54→19:50)
[2021-08-04] MEDS: Acetaminophen 325 MG TABLET PO PRN ×2 (04:04→16:19)
[2021-08-04] MEDS: Azithromycin 500 MG in 0.9 % Sodium Chloride 250 ML IVPB SCH (05:02)
[2021-08-04] MEDS: Pantoprazole 40 MG VIAL IVP SCH ×2 (05:02→17:11)
[2021-08-04] MEDS ORDERED: Dextrose 4 GM Chewable Tablets PO PRN ×2 (08:31)
[2021-08-04] MEDS ORDERED: D5% in Water 1,000 ML IVC PRN (08:31)
[2021-08-04] MEDS ORDERED: *HR* Dextrose 50 % in Water (Syg) 50 ML SYRINGE IVP PRN (08:31)
[2021-08-04] MEDS ORDERED: MethylPREDNISolone 40 MG/ML VIAL IVP SCH (09:00)
[2021-08-04] MEDS: diazePAM 5 MG TABLET PO SCH ×3 (09:07→19:59)
[2021-08-04] MEDS: *HR* Buprenorphine HCl 8 MG TAB.SUBL SL SCH ×4 (09:07→19:59)
[2021-08-04] MEDS: QUEtiapine Fumarate 300 MG TABLET PO SCH ×3 (09:07→19:59)
[2021-08-04] MEDS: Chlorhexidine Rinse 15 ML MOUTHWASH MM SCH ×2 (09:07→19:31)
[2021-08-04] MEDS: Insulin LISPRO 300 UNITS/3 ML VIAL SUBQ SCH ×2 (12:06→16:15)
[2021-08-04 13:48] LABS: Amphetamine Screen,Urine Negative ng/mL (Cutoff=1000); Barbiturate Screen,Urine Negative ng/mL (Cutoff=200); Benzodiazepines Screen,Urine Positive ng/mL (Cutoff=200); Cannabinoid Screen,Urine Negative ng/mL (Cutoff = 50); Cocaine Screen,Urine Negative ng/mL (Cutoff= 300); Opiate Screen,Urine Negative ng/mL (Cutoff=300); Phencyclidine Screen,Urine Negative ng/mL (Cutoff=25)
[2021-08-04] MEDS ORDERED: Furosemide 20 MG/2 ML VIAL IVP ONE (21:40)
[2021-08-05] MEDS: Piperacillin/Tazobactam 3.375 GM in 0.9 % Sodium Chloride Mini Bag 100 ML IVPB SCH ×3 (02:41→18:57)
[2021-08-05] MEDS: Gabapentin 400 MG CAPSULE PO SCH ×3 (02:53→20:59)
[2021-08-05 03:18] LABS: Nucleated Red Blood Cells 0.2 /100 WBC (0); Red Blood Count 2.13 M/mcL (3.82-4.97)
[2021-08-05] MEDS: Acetaminophen 325 MG TABLET PO PRN (03:18)
[2021-08-05 03:21] LABS: Hematocrit 21.7 % (35.3-44.9); Immature Platelets 30.8 % (1.1-6.1); Mean Corpuscular HGB Conc 32.3 g/dL (31.6-35.5); Mean Corpuscular Hemoglobin 32.9 pg (28.0-33.3); Mean Corpuscular Volume 101.9 fL (83.0-100.0); Mean Platelet Volume 11.8 fL (9.4-12.4); Red Cell Distribution Width 18.7 % (11.5-14.5); White Blood Count 25.9 K/mcL (4.3-11.1)
[2021-08-05 03:30] LABS: Platelet Count 61 K/mcL (140-400)
[2021-08-05] MEDS: Ipratropium/Albuterol Neb 3 ML IH SCH ×4 (03:32→22:29)
[2021-08-05 03:46] LABS: BUN/Creatinine Ratio 22 (6-26); Blood Urea Nitrogen 14 mg/dL (6-20); Calcium 8.7 mg/dL (8.6-10.3); Carbon Dioxide 31 mEq/L (23-29); Chloride 105 mEq/L (98-107); Glucose 176 mg/dL (70-105); Osmolality,Calculated 303 (280-300); Potassium 3.2 mEq/L (3.5-5.1); Sodium 144 mEq/L (136-145); eGFR For African Americans > 60 (> 60); eGFR For Non-African Americans > 60 (> 60)
[2021-08-05 04:03] LABS: Lymphocytes # 8.3 K/mcL (0.6-4.6); Monocytes # 3.6 K/mcL (0.0-1.3); Platelet Estimate Decreased (Normal)
[2021-08-05] MEDS: Pantoprazole 40 MG VIAL IVP SCH ×2 (04:33→17:05)
[2021-08-05] MEDS: Azithromycin 500 MG in 0.9 % Sodium Chloride 250 ML IVPB SCH (04:33)
[2021-08-05] MEDS: diazePAM 5 MG TABLET PO SCH ×2 (08:31→21:16)
[2021-08-05] MEDS: *HR* Buprenorphine HCl 8 MG TAB.SUBL SL SCH ×3 (08:31→21:16)
[2021-08-05] MEDS: predniSONE 20 MG TABLET PO SCH (08:32)
[2021-08-05] MEDS: Chlorhexidine Rinse 15 ML MOUTHWASH MM SCH ×2 (08:33→21:15)
[2021-08-05] MEDS: QUEtiapine Fumarate 300 MG TABLET PO SCH ×2 (08:33→21:16)
[2021-08-05] MEDS: Insulin LISPRO 300 UNITS/3 ML VIAL SUBQ SCH ×3 (08:34→16:51)
[2021-08-05] MEDS ORDERED: Potassium Chloride Elixir 20 MEQ/15 ML UDC PO ONE (09:45)
[2021-08-05] MEDS ORDERED: Isovue-370 500 ML BOTTLE IVP ONE (10:22)
[2021-08-05 12:05] LABS: Adenovirus Not Detected (Not Detect); Bordetella Pertussis Not Detected (Not Detect); Chlamydophila pneumoniae Not Detected (Not Detect); Coronavirus 229E Not Detected (Not Detect); Coronavirus HKU1 Not Detected (Not Detect); Coronavirus NL63 Not Detected (Not Detect); Coronavirus OC43 Not Detected (Not Detect); Human Metapneumovirus Not Detected (Not Detect); Human Rhinovirus/Enterovirus DETECTED (Not Detect); Influenza A Subtype 2009 H1 Not Detected (Not Detect); Influenza B Not Detected (Not Detect); Mycoplasma pneumoniae Not Detected (Not Detect); Parainfluenza Virus 1 Not Detected (Not Detect); Parainfluenza Virus 2 Not Detected (Not Detect); Parainfluenza Virus 3 Not Detected (Not Detect); Parainfluenza Virus 4 Not Detected (Not Detect); Respiratory Syncytial Virus Not Detected (Not Detect); SARS-CoV-2 Not Detected (Not Detect)
[2021-08-05] MEDS ORDERED: Furosemide 40 MG/4 ML VIAL IVP ONE (13:04)
[2021-08-05 14:10] LABS: Hematocrit 19.8 % (35.3-44.9); Hemoglobin 6.3 g/dL (11.5-15.4)
[2021-08-05 16:06] LABS: Bacteria,Urine Few per hpf (None-Few); Bilirubin,Urine Negative (Negative); Blood,Urine Trace (Negative); Clarity,Urine Clear (Clear); Color,Urine Light-Yellow (Yellow); Glucose,Urine (UA) Normal (Normal); Ketones,Urine Negative (Negative); Leukocyte Esterase,Urine Negative (Negative); Mucus,Urine Few per lpf (None-Few); Nitrite,Urine Negative (Negative); Protein,Urine 30 mg/dL (Neg-Trace); RBC,Urine 0-3 per hpf (0-3); Specific Gravity,Urine 1.021 (1.010-1.025); Squamous Epithelial Cell,Urine Few per hpf (None-Few); Urobilinogen,Urine Normal (Normal); WBC,Urine 0-3 per hpf (0-3)
[2021-08-05 16:09] LABS: ABG Base Excess 5 mEq/L (-2 to 3); ABG HCO3 30 mEq/L (21-27); ABG Oxygen Saturation 97 % (95-98); ABG PCO2 50 mmHg (35-45); ABG PO2 90 mmHg (85-104); ABG TCO2 32 mEq/L (20-26)
[2021-08-05] MEDS ORDERED: Furosemide 20 MG/2 ML VIAL IVP ONE (18:16)
[2021-08-05 18:45] LABS: Hematocrit 22.7 % (35.3-44.9); Hemoglobin 7.3 g/dL (11.5-15.4)
[2021-08-06] MEDS: Piperacillin/Tazobactam 3.375 GM in 0.9 % Sodium Chloride Mini Bag 100 ML IVPB SCH ×3 (02:57→20:19)
[2021-08-06] MEDS: Ipratropium/Albuterol Neb 3 ML IH SCH ×4 (03:41→20:14)
[2021-08-06] MEDS: Gabapentin 400 MG CAPSULE PO SCH ×3 (04:00→20:20)
[2021-08-06 04:06] LABS: Hematocrit 23.2 % (35.3-44.9); Mean Corpuscular Volume 100.4 fL (83.0-100.0); Nucleated Red Blood Cells 0.1 /100 WBC (0); Red Blood Count 2.31 M/mcL (3.82-4.97)
[2021-08-06 04:08] LABS: Hemoglobin 7.5 g/dL (11.5-15.4); Immature Platelets 35.4 % (1.1-6.1); Mean Corpuscular HGB Conc 32.3 g/dL (31.6-35.5); Mean Corpuscular Hemoglobin 32.5 pg (28.0-33.3); White Blood Count 23.2 K/mcL (4.3-11.1)
[2021-08-06 04:13] LABS: Platelet Count 47 K/mcL (140-400)
[2021-08-06 04:22] LABS: BUN/Creatinine Ratio 32 (6-26); Blood Urea Nitrogen 21 mg/dL (6-20); Calcium 8.4 mg/dL (8.6-10.3); Carbon Dioxide 32 mEq/L (23-29); Chloride 104 mEq/L (98-107); Glucose 258 mg/dL (70-105); Osmolality,Calculated 308 (280-300); Potassium 3.4 mEq/L (3.5-5.1); Sodium 143 mEq/L (136-145); eGFR For African Americans > 60 (> 60); eGFR For Non-African Americans > 60 (> 60)
[2021-08-06 04:32] LABS: Hypochromasia Present (Not Present); Platelet Estimate Decreased (Normal)
[2021-08-06 04:33] LABS: Anisocytosis 1+ (Not Present)
[2021-08-06 04:34] LABS: Lymphocytes # 3.7 K/mcL (0.6-4.6); Neutrophils # 18.6 K/mcL (1.6-8.9); Toxic Granulation Present (Not Present)
[2021-08-06] MEDS: Azithromycin 500 MG in 0.9 % Sodium Chloride 250 ML IVPB SCH (04:51)
[2021-08-06] MEDS: Pantoprazole 40 MG VIAL IVP SCH ×2 (04:52→17:12)
[2021-08-06] MEDS: Insulin LISPRO 300 UNITS/3 ML VIAL SUBQ SCH ×3 (08:00→16:41)
[2021-08-06] MEDS ORDERED: Isovue-370 500 ML BOTTLE IVP ONE (08:30)
[2021-08-06] MEDS: *HR* Metoprolol 5 MG/5 ML VIAL IVP PRN ×2 (08:30→21:18)
[2021-08-06 09:52] LABS: ABG Base Excess 5 mEq/L (-2 to 3); ABG HCO3 31 mEq/L (21-27); ABG Oxygen Saturation 92 % (95-98); ABG PCO2 52 mmHg (35-45); ABG PH 7.38 pH Units (7.32-7.45); ABG PO2 66 mmHg (85-104); ABG TCO2 32 mEq/L (20-26)
[2021-08-06 10:04] LABS: Alanine Aminotransferase 33 Units/L (7-52); Albumin 2.7 g/dL (3.5-5.7); Alkaline Phosphatase 97 Units/L (34-104); Aspartate Amino Transferase 28 Units/L (13-39); Bilirubin,Direct 0.2 mg/dL (0.0-0.2); Bilirubin,Indirect 0.4 mg/dL (0.0-1.0); Bilirubin,Total 0.6 mg/dL (0.3-1.0); Globulin 2.7 g/dL (2.4-3.5); Lipase 10 Units/L (11-82); Total Protein 5.4 g/dL (6.4-8.9)
[2021-08-06] MEDS ORDERED: Furosemide 20 MG/2 ML VIAL IVP ONE (10:15)
[2021-08-06 11:01] LABS: Procalcitonin 4.91 ng/mL (0.00-0.15)
[2021-08-06 11:31] LABS: Hepatitis B Surface Antigen Nonreactive (Nonreactive)
[2021-08-06] MEDS ORDERED: Acetaminophen IV 1,000 MG/100 ML BAG IVPB ONE (11:42)
[2021-08-06 11:59] LABS: Hepatitis C Virus Antibody Nonreactive (Nonreactive)
[2021-08-06 12:00] LABS: Hepatitis B Core IgM Nonreactive (Nonreactive)
[2021-08-06] MEDS: Chlorhexidine Rinse 15 ML MOUTHWASH MM SCH ×2 (12:00→20:19)
[2021-08-06] MEDS: predniSONE 20 MG TABLET PO SCH (12:00)
[2021-08-06 12:02] LABS: Hepatitis A Antibody IgM Nonreactive (Nonreactive)
[2021-08-06 16:30] LABS: Amylase 22 Units/L (29-103); C-Reactive Protein > 300 mg/L (Less than 10); Lipase 15 Units/L (11-82); Uric Acid 3.6 mg/dL (2.3-7.6)
[2021-08-06 18:52] LABS: Potassium 3.6 mEq/L (3.5-5.1)
[2021-08-06 21:49] LABS: ABG Base Excess 6 mEq/L (-2 to 3); ABG HCO3 32 mEq/L (21-27); ABG Oxygen Saturation 98 % (95-98); ABG PCO2 58 mmHg (35-45); ABG PH 7.35 pH Units (7.32-7.45); ABG PO2 103 mmHg (85-104); ABG TCO2 34 mEq/L (20-26)
[2021-08-06] MEDS: Furosemide 20 MG/2 ML VIAL IVP SCH (23:19)
[2021-08-07] MEDS: Piperacillin/Tazobactam 3.375 GM in 0.9 % Sodium Chloride Mini Bag 100 ML IVPB SCH ×3 (02:11→18:07)
[2021-08-07] MEDS: Gabapentin 400 MG CAPSULE PO SCH ×3 (02:42→20:19)
[2021-08-07] MEDS: *HR* Metoprolol 5 MG/5 ML VIAL IVP PRN (03:19)
[2021-08-07 03:55] LABS: Hematocrit 22.5 % (35.3-44.9); Hemoglobin 7.3 g/dL (11.5-15.4); Immature Platelets 34.8 % (1.1-6.1); Mean Corpuscular HGB Conc 32.4 g/dL (31.6-35.5); Mean Corpuscular Hemoglobin 33.2 pg (28.0-33.3); Mean Corpuscular Volume 102.3 fL (83.0-100.0); Mean Platelet Volume 13.8 fL (9.4-12.4); Nucleated Red Blood Cells 0.1 /100 WBC (0); Red Cell Distribution Width 18.6 % (11.5-14.5); White Blood Count 19.8 K/mcL (4.3-11.1)
[2021-08-07] MEDS: Ipratropium/Albuterol Neb 3 ML IH SCH ×4 (03:57→22:36)
[2021-08-07 04:10] LABS: BUN/Creatinine Ratio 26 (6-26); Blood Urea Nitrogen 19 mg/dL (6-20); Calcium 8.6 mg/dL (8.6-10.3); Carbon Dioxide 35 mEq/L (23-29); Chloride 105 mEq/L (98-107); Glucose 121 mg/dL (70-105); Magnesium 1.6 mg/dL (1.6-2.6); Osmolality,Calculated 308 (280-300); Phosphorous 3.8 mg/dL (2.7-4.5); Potassium 3.3 mEq/L (3.5-5.1); Sodium 147 mEq/L (136-145); eGFR For African Americans > 60 (> 60); eGFR For Non-African Americans > 60 (> 60)
[2021-08-07 04:39] LABS: Platelet Count 44 K/mcL (140-400)
[2021-08-07] MEDS: Azithromycin 500 MG in 0.9 % Sodium Chloride 250 ML IVPB SCH (04:46)
[2021-08-07] MEDS: Pantoprazole 40 MG VIAL IVP SCH ×2 (04:47→18:08)
[2021-08-07 04:49] LABS: Anisocytosis 2+ (Not Present); Lymphocytes # 2.4 K/mcL (0.6-4.6); Macrocytosis Present (Not Present); Monocytes # 0.8 K/mcL (0.0-1.3); Neutrophils # 15.1 K/mcL (1.6-8.9); Platelet Estimate Decreased (Normal)
[2021-08-07] MEDS: Chlorhexidine Rinse 15 ML MOUTHWASH MM SCH ×2 (07:42→20:18)
[2021-08-07] MEDS: predniSONE 20 MG TABLET PO SCH (07:43)
[2021-08-07] MEDS: Insulin LISPRO 300 UNITS/3 ML VIAL SUBQ SCH ×3 (07:43→18:08)
[2021-08-07] MEDS: Furosemide 20 MG/2 ML VIAL IVP SCH (07:43)
[2021-08-07 11:06] LABS: Potassium 3.3 mEq/L (3.5-5.1)
[2021-08-07 11:32] LABS: Mean Platelet Volume 14.6 fL (9.4-12.4)
[2021-08-07] MEDS: Potassium Chloride 40 MEQ/200 ML BAG IVPB PRN (11:37)
[2021-08-08] MEDS: Piperacillin/Tazobactam 3.375 GM in 0.9 % Sodium Chloride Mini Bag 100 ML IVPB SCH ×3 (02:15→20:24)
[2021-08-08] MEDS: Ipratropium/Albuterol Neb 3 ML IH SCH ×4 (03:15→22:58)
[2021-08-08] MEDS: Gabapentin 400 MG CAPSULE PO SCH (04:33)
[2021-08-08 04:41] LABS: BUN/Creatinine Ratio 40 (6-26); Blood Urea Nitrogen 25 mg/dL (6-20); Calcium 8.7 mg/dL (8.6-10.3); Carbon Dioxide 35 mEq/L (23-29); Chloride 107 mEq/L (98-107); Glucose 143 mg/dL (70-105); Osmolality,Calculated 315 (280-300); Potassium 3.5 mEq/L (3.5-5.1); Sodium 149 mEq/L (136-145); eGFR For African Americans > 60 (> 60); eGFR For Non-African Americans > 60 (> 60)
[2021-08-08] MEDS: Pantoprazole 40 MG VIAL IVP SCH ×2 (05:14→20:24)
[2021-08-08] MEDS: Potassium Chloride 40 MEQ/200 ML BAG IVPB PRN ×2 (05:20→06:11)
[2021-08-08] MEDS: Insulin LISPRO 300 UNITS/3 ML VIAL SUBQ SCH ×2 (08:00→19:25)
[2021-08-08] MEDS: predniSONE 20 MG TABLET PO SCH (09:00)
[2021-08-08] MEDS ORDERED: diazePAM 5 MG TABLET PO ONE (09:15)
[2021-08-08] MEDS: Chlorhexidine Rinse 15 ML MOUTHWASH MM SCH ×2 (09:27→20:24)
[2021-08-08] MEDS: Acetaminophen 325 MG TABLET PO PRN (11:07)
[2021-08-08] MEDS ORDERED: D5% in Water 1,000 ML IVC PRN (12:26)
[2021-08-08] MEDS ORDERED: Albuterol 2.5 MG/3 ML NEBULIZER IH PRN (12:26)
[2021-08-08] MEDS ORDERED: Acetaminophen 325 MG TABLET PO PRN (12:26)
[2021-08-08] MEDS ORDERED: Ondansetron 4 MG/2 ML VIAL IVP PRN (12:26)
[2021-08-08] MEDS ORDERED: Naloxone 0.4 MG/ML INJ IVP PRN (12:26)
[2021-08-08] MEDS ORDERED: Dextrose 4 GM Chewable Tablets PO PRN ×2 (12:26)
[2021-08-08] MEDS ORDERED: *HR* Dextrose 50 % in Water (Syg) 50 ML SYRINGE IVP PRN (12:26)
[2021-08-08] MEDS ORDERED: Potassium Chloride 40 MEQ/200 ML BAG IVPB PRN (12:26)
[2021-08-08] MEDS ORDERED: *HR* Metoprolol 5 MG/5 ML VIAL IVP PRN (12:26)
[2021-08-08] MEDS ORDERED: Gabapentin 300 MG CAPSULE PO SCH (14:00)
[2021-08-08] MEDS: Gabapentin 300 MG CAPSULE PO SCH ×2 (14:46→20:24)
[2021-08-08] MEDS: diazePAM 5 MG TABLET PO SCH (20:24)
[2021-08-08 20:56] LABS: VBG Ionized Calcium 1.17 mmol/L (1.15-1.35)
[2021-08-08 21:08] LABS: Activated Partial Thrombo Time 28.9 Seconds (26.0-36.0)
[2021-08-08 21:09] LABS: INR 2.2; Prothrombin Time 24.9 Seconds (9.4-12.1)
[2021-08-08 21:11] LABS: Phosphorous 3.3 mg/dL (2.7-4.5)
[2021-08-09] MEDS: Ipratropium/Albuterol Neb 3 ML IH SCH ×4 (04:09→22:06)
[2021-08-09 04:34] LABS: Red Blood Count 2.54 M/mcL (3.82-4.97)
[2021-08-09 04:36] LABS: Hematocrit 25.9 % (35.3-44.9); Hemoglobin 8.2 g/dL (11.5-15.4); Immature Platelets 44.2 % (1.1-6.1); Mean Corpuscular HGB Conc 31.7 g/dL (31.6-35.5); Mean Corpuscular Hemoglobin 32.3 pg (28.0-33.3); Red Cell Distribution Width 18.1 % (11.5-14.5); White Blood Count 17.3 K/mcL (4.3-11.1)
[2021-08-09 04:39] LABS: Platelet Count 38 K/mcL (140-400)
[2021-08-09 04:59] LABS: BUN/Creatinine Ratio 47 (6-26); Blood Urea Nitrogen 27 mg/dL (6-20); Calcium 8.9 mg/dL (8.6-10.3); Carbon Dioxide 32 mEq/L (23-29); Chloride 107 mEq/L (98-107); Glucose 163 mg/dL (70-105); Osmolality,Calculated 315 (280-300); Potassium 3.8 mEq/L (3.5-5.1); Sodium 148 mEq/L (136-145); eGFR For African Americans > 60 (> 60); eGFR For Non-African Americans > 60 (> 60)
[2021-08-09] MEDS: Gabapentin 300 MG CAPSULE PO SCH ×3 (07:29→21:22)
[2021-08-09] MEDS: Pantoprazole 40 MG VIAL IVP SCH ×2 (07:33→18:06)
[2021-08-09] MEDS: Piperacillin/Tazobactam 3.375 GM in 0.9 % Sodium Chloride Mini Bag 100 ML IVPB SCH ×3 (08:17→21:19)
[2021-08-09] MEDS: Insulin LISPRO 300 UNITS/3 ML VIAL SUBQ SCH ×3 (08:17→18:12)
[2021-08-09] MEDS: predniSONE 20 MG TABLET PO SCH (08:18)
[2021-08-09] MEDS: diazePAM 5 MG TABLET PO SCH ×3 (08:18→21:22)
[2021-08-09] MEDS: Chlorhexidine Rinse 15 ML MOUTHWASH MM SCH ×2 (08:18→21:16)
[2021-08-09] MEDS ORDERED: predniSONE 20 MG TABLET PO SCH (09:00)
[2021-08-09 10:38] LABS: ANA IgG by ELISA NONE DETECTED (None Detected)
[2021-08-09 11:24] LABS: VBG Ionized Calcium 1.13 mmol/L (1.15-1.35)
[2021-08-09 11:37] LABS: Phosphorous 2.7 mg/dL (2.7-4.5); Uric Acid 2.6 mg/dL (2.3-7.6)
[2021-08-09 18:49] LABS: VBG Ionized Calcium 1.16 mmol/L (1.15-1.35)
[2021-08-09 19:00] LABS: Activated Partial Thrombo Time 27.8 Seconds (26.0-36.0)
[2021-08-09 19:01] LABS: INR 1.5; Prothrombin Time 16.8 Seconds (9.4-12.1)
[2021-08-09 19:11] LABS: Uric Acid 2.5 mg/dL (2.3-7.6)
[2021-08-10] MEDS: Ipratropium/Albuterol Neb 3 ML IH SCH ×2 (03:54→10:41)
[2021-08-10] MEDS: Gabapentin 300 MG CAPSULE PO SCH (05:50)
[2021-08-10] MEDS: Pantoprazole 40 MG VIAL IVP SCH (05:50)
[2021-08-10] MEDS: Piperacillin/Tazobactam 3.375 GM in 0.9 % Sodium Chloride Mini Bag 100 ML IVPB SCH ×2 (05:51→10:53)
[2021-08-10 06:24] LABS: INR 1.4; Prothrombin Time 15.7 Seconds (9.4-12.1)
[2021-08-10 06:26] LABS: Activated Partial Thrombo Time 29.3 Seconds (26.0-36.0)
[2021-08-10 06:33] LABS: Phosphorous 3.1 mg/dL (2.7-4.5); Uric Acid 2.1 mg/dL (2.3-7.6)
[2021-08-10 07:09] VITALS: TEMP 98
[2021-08-10] MEDS: Chlorhexidine Rinse 15 ML MOUTHWASH MM SCH (08:07)
[2021-08-10] MEDS: diazePAM 5 MG TABLET PO SCH (08:07)
[2021-08-10] MEDS: predniSONE 20 MG TABLET PO SCH (08:07)
[2021-08-10] MEDS: Insulin LISPRO 300 UNITS/3 ML VIAL SUBQ SCH ×2 (08:15→13:05)
[2021-08-10 08:45] LABS: VBG Ionized Calcium 1.16 mmol/L (1.15-1.35)
[2021-08-10 08:47] LABS: Hemoglobin 8.4 g/dL (11.5-15.4); Mean Corpuscular Volume 99.6 fL (83.0-100.0); Red Cell Distribution Width 17.9 % (11.5-14.5)
[2021-08-10 08:49] LABS: INR 1.4; Immature Platelets 46.5 % (1.1-6.1); Mean Corpuscular HGB Conc 32.3 g/dL (31.6-35.5); Mean Corpuscular Hemoglobin 32.2 pg (28.0-33.3); Nucleated Red Blood Cells 0.2 /100 WBC (0); Prothrombin Time 15.5 Seconds (9.4-12.1); Red Blood Count 2.61 M/mcL (3.82-4.97); White Blood Count 20.7 K/mcL (4.3-11.1)
[2021-08-10 08:51] LABS: Activated Partial Thrombo Time 30.2 Seconds (26.0-36.0)
[2021-08-10 09:03] LABS: Platelet Count 26 K/mcL (140-400)
[2021-08-10 09:09] LABS: BUN/Creatinine Ratio 33 (6-26); Blood Urea Nitrogen 19 mg/dL (6-20); Calcium 8.5 mg/dL (8.6-10.3); Carbon Dioxide 31 mEq/L (23-29); Chloride 108 mEq/L (98-107); Glucose 259 mg/dL (70-105); Osmolality,Calculated 315 (280-300); Phosphorous 2.7 mg/dL (2.7-4.5); Potassium 3.2 mEq/L (3.5-5.1); Sodium 147 mEq/L (136-145); Uric Acid 2.1 mg/dL (2.3-7.6); eGFR For African Americans > 60 (> 60); eGFR For Non-African Americans > 60 (> 60)
[2021-08-10 09:22] LABS: Lymphocytes # 3.3 K/mcL (0.6-4.6); Monocytes # 2.9 K/mcL (0.0-1.3); Neutrophils # 14.5 K/mcL (1.6-8.9)
[2021-08-10 09:23] LABS: Platelet Estimate Decreased (Normal); Toxic Granulation Present (Not Present)
[2021-08-10 09:24] LABS: Hypochromasia Present (Not Present); Large Platelets Present (Not Present)
[2021-08-10] MEDS ORDERED: Acyclovir 600 MG in D5% in Water 100 ML IVPB SCH (12:00)
[2021-08-10 13:03] VITALS: BP 137/84; PULSE 112; O2SAT 90
== END 2021-08-10 13:45 | disposition short-term general hospital (02) | DRG 720 ==
LOC: SUATTDRO 18:13 → ICNU 18:13 → 2NNU 08-08 11:00
PROVIDERS: ADMIT Pediatrics; ATTEND Student in an Organized Health Care Education/Training Program